=== PATIENT | male | born 1945 | race Caucasian/White ===

== ENCOUNTER → 2016-08-25 | Outpatient (CLI) | payer OTHER ==
[2016-08-25 11:27] LABS: CHOLESTEROL 85 mg/dL (0-200); GLUCOSE FASTING 113 mg/dL (70-110); HDL CHOLESTEROL 34 mg/dL (29-75); LDL CHOLESTEROL 33 mg/dL (-130); LDL/HDL RATIO 1 RATIO (0-4); TRIGLYCERIDES 89 mg/dL (10-160)
== END | disposition home or self-care (01) ==
LOC: CLAB 10:15
DX: Z48.812 Encounter for surgical aftercare following surgery on the circulatory system (principal); Z98.61 Coronary angioplasty status
CPT/HCPCS: 36415; 80061; 82947; 83036; 86140